=== PATIENT | female | born 1940 | race Caucasian/White ===

== ENCOUNTER 2021-09-16 17:02 | Inpatient (IN) | payer MEDICARE ==
[~2021-09-16] VITALS: Ht 172.7 cm; Wt 72.9 kg
[2021-09-16] MEDS ORDERED: normal saline 1000ml 1,000 ML IV ONE (17:25)
[2021-09-16] MEDS ORDERED: diltiazem 5mg/ml 5ml inj. IV ONE ×3 (17:25→18:50)
[2021-09-16] MEDS ORDERED: aspirin 81mg tab.chew PO ONE (17:25)
[2021-09-16] MEDS ORDERED: diltiazem-D5W 125mg/125ml 125 ML IV PRN (17:35)
--- NOTE | 2021-09-16 17:46 | NUR ---
Pt refused ASA 324mg PO after we had scanned the medications in. Pt did not receive Aspirin. All Aspirin wasted.
[2021-09-16 17:47] LABS: BASOPHILS % (AUTO) 0.6 % (0-1); EOSINOPHILS # (AUTO) 0.2 X10'3 (0-0.9); EOSINOPHILS % (AUTO) 2.5 % (0-6); HEMATOCRIT 43.1 % (35.0-45.0); HEMOGLOBIN 14.6 g/dl (12.0-16.0); LYMPHOCYTES # (AUTO) 1.2 X10'3 (1.1-4.8); LYMPHOCYTES % (AUTO) 14.6 % (21-51); MEAN CORPUSCULAR HEMOGLOBIN 29.1 PG (27.0-31.0); MEAN CORPUSCULAR HGB CONC 33.8 g/dL (33.0-36.5); MEAN CORPUSCULAR VOLUME 85.9 FL (78-98); MEAN PLATELET VOLUME 8.2 FL (7.4-10.4); MONOCYTES # (AUTO) 0.7 X10'3 (0-0.9); MONOCYTES % (AUTO) 8.6 % (2-12); NEUTROPHILS % (AUTO) 73.7 % (42-75); PLATELET COUNT 188 X10'3 (140-440); RED BLOOD COUNT 5.02 X10'6 (4.20-5.60); RED CELL DISTRIBUTION WIDTH 14.1 % (11.5-14.5); WHITE BLOOD COUNT 8.1 X10'3 (4.5-11.0)
[2021-09-16 17:56] LABS: APTT 26 SECONDS (22-32); D-DIMER 3.93 MG/L FEU (0-0.50)
[2021-09-16 18:08] LABS: ALANINE AMINOTRANSFERASE 34 U/L (12-78); ALBUMIN 3.5 G/DL (3.4-5.0); ALBUMIN/GLOBULIN RATIO 1.1 (1.1-1.5); ALKALINE PHOSPHATASE 64 IU/L (46-116); ANION GAP 10 (8-16); ASPARTATE AMINO TRANSFERASE 29 U/L (10-37); BILIRUBIN,TOTAL 1.2 MG/DL (0.1-1.0); BLOOD UREA NITROGEN 15 MG/DL (7-18); C-REACTIVE PROTEIN 1.09 MG/DL (0.0-0.5); CHLORIDE 108 MMOL/L (99-107); CREATININE 0.79 MG/DL (0.40-0.90); GLUCOSE 136 MG/DL (70-104); SODIUM 145 MMOL/L (135-145); TOTAL CARBON DIOXIDE 27.4 MMOL/L (24-32); TOTAL PROTEIN 6.7 G/DL (6.4-8.2); eGFR 70 ML/MIN
[2021-09-16 18:14] LABS: MAGNESIUM 2.1 MG/DL (1.5-2.4); POTASSIUM 2.8 MMOL/L (3.5-5.1)
[2021-09-16] MEDS ORDERED: potassium Cl 20 mEq SR tablet PO ONE (18:45)
[2021-09-16] MEDS ORDERED: potassium CL 10mEq/100ml bag 100 ML IV ONE (18:45)
[2021-09-16] MEDS ORDERED: enoxaparin 100mg/ml syringe SUBCUT ONE ×2 (18:50→19:40)
[2021-09-16] MEDS ORDERED: enoxaparin 40mg/0.4ml syringe SUBCUT ONE (18:55)
[2021-09-16] MEDS ORDERED: enoxaparin 30mg/0.3ml syringe SUBCUT ONE (18:55)
--- NOTE | 2021-09-16 19:30 | NUR ---
Dr. Rendon at bs; pt's hr 156, will increase cardizem gtt to 10 ml/hr per md.
[2021-09-16] MEDS ORDERED: magnesium hydroxide 30ml (MOM) UD suspension PO PRN (19:40)
[2021-09-16] MEDS ORDERED: ondansetron/PF 4mg/2ml inj IV PRN (19:40)
[2021-09-16] MEDS ORDERED: HYDROcodone/acetaminophen 5mg/325mg tablet PO PRN (19:40)
[2021-09-16] MEDS ORDERED: mag hydrox/Alum hydrox/simeth 30ml oral suspension PO PRN (19:40)
[2021-09-16] MEDS ORDERED: morphine 2 MG/ML inj. syringe IV PRN ×2 (19:40)
[2021-09-16] MEDS: docusate sod 100mg capsule PO SCH (20:00)
--- NOTE | 2021-09-16 22:00 | NUR ---
pt observed awake, and resting in bed, sleep aid offered, pt declined, states she normally does not sleep much at home; informed pt that sleep promotes overall health and wellbeing
[2021-09-16 22:23] LABS: CLARITY,URINE SLIGHTLY CLOUDY (Clear); COLOR,URINE YELLOW (Yellow); GLUCOSE, URINE NEGATIVE (Neg); KETONES,URINE NEGATIVE (Neg); LEUKOCYTE ESTERASE ,URINE MODERATE (Neg); NITRITES, URINE NEGATIVE (Neg); OCCULT BLOOD,URINE TRACE-INTACT (Neg); PROTEIN,URINE NEGATIVE (Neg)
[2021-09-16 22:28] LABS: UA COLLECTION TYPE NON-SPECIFIED
[2021-09-16 22:34] LABS: BACTERIA,URINE 2+ /HPF (Neg); MUCUS STRANDS MANY /LPF (Neg); RBC,URINE 0-2 /HPF (0-2); SQUAMOUS EPITHELIAL CELL,UR MANY /LPF (FEW); WBC,URINE 30-50 /HPF (0-4)
--- NOTE | 2021-09-16 23:00 | NUR ---
pt straight cath for clear, y ellow urine, spec sent to lab.
[2021-09-16 23:27] LABS: CLARITY,URINE CLEAR (Clear); COLOR,URINE YELLOW (Yellow); GLUCOSE, URINE NEGATIVE (Neg); KETONES,URINE NEGATIVE (Neg); LEUKOCYTE ESTERASE ,URINE NEGATIVE (Neg); NITRITES, URINE NEGATIVE (Neg); OCCULT BLOOD,URINE NEGATIVE (Neg); PROTEIN,URINE NEGATIVE (Neg)
[2021-09-16 23:32] LABS: UA COLLECTION TYPE NON-SPECIFIED
--- NOTE | 2021-09-17 01:15 | NUR ---
Notified Elina GARCIA of potassium critical lab value
[2021-09-17 01:33] LABS: BASOPHILS % (AUTO) 0.5 % (0-1); EOSINOPHILS # (AUTO) 0.2 X10'3 (0-0.9); EOSINOPHILS % (AUTO) 2.2 % (0-6); HEMATOCRIT 41.8 % (35.0-45.0); HEMOGLOBIN 13.9 g/dl (12.0-16.0); LYMPHOCYTES # (AUTO) 1.6 X10'3 (1.1-4.8); LYMPHOCYTES % (AUTO) 17.4 % (21-51); MEAN CORPUSCULAR HEMOGLOBIN 28.9 PG (27.0-31.0); MEAN CORPUSCULAR HGB CONC 33.4 g/dL (33.0-36.5); MEAN CORPUSCULAR VOLUME 86.7 FL (78-98); MEAN PLATELET VOLUME 8.3 FL (7.4-10.4); MONOCYTES % (AUTO) 11.1 % (2-12); NEUTROPHILS # (AUTO) 6.1 X10'3 (1.8-7.7); NEUTROPHILS % (AUTO) 68.8 % (42-75); PLATELET COUNT 156 X10'3 (140-440); RED BLOOD COUNT 4.82 X10'6 (4.20-5.60); RED CELL DISTRIBUTION WIDTH 14.7 % (11.5-14.5); WHITE BLOOD COUNT 8.9 X10'3 (4.5-11.0)
[2021-09-17 01:43] LABS: ANION GAP 12 (8-16); BLOOD UREA NITROGEN 15 MG/DL (7-18); BUN/CREATININE RATIO 20.3 (6.6-38.0); CALCIUM 8.9 MG/DL (8.5-10.1); CHLORIDE 104 MMOL/L (99-107); CREATININE 0.74 MG/DL (0.40-0.90); GLUCOSE 117 MG/DL (70-104); SODIUM 140 MMOL/L (135-145); TOTAL CARBON DIOXIDE 24.1 MMOL/L (24-32); eGFR 76 ML/MIN
[2021-09-17 01:46] LABS: POTASSIUM 2.9 MMOL/L (3.5-5.1)
--- NOTE | 2021-09-17 02:00 | NUR ---
provided comfort and dim light in attempt to promote rest, or encourage sleep
[2021-09-17] MEDS ORDERED: potassium Cl 10 mEq/100mL bag IV ONE (02:15)
[2021-09-17] MEDS ORDERED: METO75TA PO (03:59)
--- NOTE | 2021-09-17 04:00 | NUR ---
Pt awake, states she does not sleep much at nights
[2021-09-17] MEDS ORDERED: OMEP20TA23 PO (04:01)
[2021-09-17] MEDS ORDERED: IBUP-1984 PO (04:10)
[2021-09-17] MEDS ORDERED: ASPI81TA52 PO (04:11)
[2021-09-17] MEDS ORDERED: magnesium 4gm in 100ml NS 100 ML IV PRN (06:10)
[2021-09-17] MEDS ORDERED: magnesium 2GM in 50ml NS 50 ML IV PRN (06:10)
[2021-09-17] MEDS ORDERED: potassium CL 10mEq/100ml bag 100 ML IV PRN (06:10)
[2021-09-17] MEDS ORDERED: magnesium Cl slow-release 64mg tablet PO PRN (06:10)
[2021-09-17 07:24] LABS: MAGNESIUM 1.8 MG/DL (1.5-2.4)
[2021-09-17 07:27] LABS: POTASSIUM 2.7 MMOL/L (3.5-5.1)
[2021-09-17] MEDS: pantoprazole 40mg Tablet.DR PO SCH (07:52)
[2021-09-17] MEDS: docusate sod 100mg capsule PO SCH ×2 (07:53→19:51)
[2021-09-17] MEDS ORDERED: metoprolol tartrate 25mg tablet PO SCH (08:00)
[2021-09-17] MEDS ORDERED: aspirin 81mg, enteric-coated 1 TAB TABLET.DR PO SCH (08:00)
[2021-09-17] MEDS: furosemide 20 MG/2 ML vial IV SCH ×2 (08:00→19:58)
[2021-09-17] MEDS: potassium Cl 20 mEq SR tablet PO PRN ×3 (08:13→19:53)
--- NOTE | 2021-09-17 08:17 | NUR ---
Spoke with Dr. Bruner about Afib with RVR. Pt's HR 125-145. Lopressor was given at 0752, aware, and will call or notify us with futher orders. Also notified about K+ 2.7, following protocol and gave pt 40mEq Kdur PO.
--- NOTE | 2021-09-17 12:45 | NUR ---
Spoke with Dr. Bruner regarding pt's increasing HR.
--- NOTE | 2021-09-17 13:19 | NUR ---
Report given to Mary Ann RN in PCU.
[2021-09-17] MEDS ORDERED: ASPI-611 PO (13:45)
[2021-09-17] MEDS ORDERED: OMEP20TA43 PO (13:45)
[2021-09-17] MEDS ORDERED: IBUP-24 PO (13:45)
[2021-09-17] MEDS: diltiazem-D5W 125mg/125ml 125 ML IV SCH (13:47)
[2021-09-17 14:25] VITALS: BP 124/99
[2021-09-17 15:00] VITALS: BP 129/92
[2021-09-17] MEDS ORDERED: traMADol 50MG tablet PO PRN (15:00)
[2021-09-17 17:00] VITALS: BP 120/73
[2021-09-17 18:00] VITALS: BP 129/92
[2021-09-17] MEDS: metoprolol tartrate 50mg tablet PO SCH (19:52)
[2021-09-17] MEDS: K and/or MAG REPLACEMENT MC SCH ×2 (20:00→21:00)
[2021-09-17 22:00] VITALS: BP 129/92
[2021-09-18] VITALS (7 sets, daily range): BP systolic 69–155; BP diastolic 55–106
--- NOTE | 2021-09-18 04:23 | NUR ---
Patient still on cardizem drip. At about [address], bp noted to be 69/55,(58). Dr Pagan notified. Ordered to stop the cadizem drip. Cadizem drip stopped at this time. Patient appears stable at this time. will continue to monitor.
[2021-09-18 06:19] LABS: BASOPHILS % (AUTO) 0.3 % (0-1); EOSINOPHILS # (AUTO) 0.2 X10'3 (0-0.9); EOSINOPHILS % (AUTO) 1.6 % (0-6); HEMATOCRIT 40.6 % (35.0-45.0); HEMOGLOBIN 13.9 g/dl (12.0-16.0); LYMPHOCYTES # (AUTO) 1.2 X10'3 (1.1-4.8); LYMPHOCYTES % (AUTO) 12.7 % (21-51); MEAN CORPUSCULAR HEMOGLOBIN 29.3 PG (27.0-31.0); MEAN CORPUSCULAR HGB CONC 34.1 g/dL (33.0-36.5); MEAN CORPUSCULAR VOLUME 85.9 FL (78-98); MEAN PLATELET VOLUME 8.7 FL (7.4-10.4); MONOCYTES % (AUTO) 10.5 % (2-12); NEUTROPHILS # (AUTO) 6.9 X10'3 (1.8-7.7); NEUTROPHILS % (AUTO) 74.9 % (42-75); PLATELET COUNT 201 X10'3 (140-440); RED BLOOD COUNT 4.73 X10'6 (4.20-5.60); RED CELL DISTRIBUTION WIDTH 14.3 % (11.5-14.5); WHITE BLOOD COUNT 9.2 X10'3 (4.5-11.0)
[2021-09-18 06:25] LABS: ANION GAP 4 (8-16); BLOOD UREA NITROGEN 19 MG/DL (7-18); CALCIUM 9.3 MG/DL (8.5-10.1); CHLORIDE 106 MMOL/L (99-107); CREATININE 0.95 MG/DL (0.40-0.90); GLUCOSE 133 MG/DL (70-104); POTASSIUM 4.5 MMOL/L (3.5-5.1); SODIUM 141 MMOL/L (135-145); TOTAL CARBON DIOXIDE 30.9 MMOL/L (24-32); eGFR 57 ML/MIN
[2021-09-18] MEDS: K and/or MAG REPLACEMENT MC SCH ×2 (08:00→20:00)
[2021-09-18] MEDS: furosemide 20 MG/2 ML vial IV SCH ×2 (08:00→20:00)
[2021-09-18] MEDS ORDERED: non-formulary drug (Omeprazole 1 TAB) PO SCH (08:00)
[2021-09-18] MEDS: docusate sod 100mg capsule PO SCH ×2 (08:00→20:00)
[2021-09-18] MEDS ORDERED: digoxin 250mcg/ml 2ml ampule IV ONE (08:40)
[2021-09-18] MEDS: pantoprazole 40mg Tablet.DR PO SCH (09:30)
[2021-09-18] MEDS ORDERED: iohexol 350MG/ML 100ml bottle IV ONE (10:33)
[2021-09-18] MEDS ORDERED: non-formulary drug (Aspirin (Aspir 81) 1 TAB) PO SCH (12:00)
[2021-09-18] MEDS ORDERED: amiodarone 150mg/dext, iso-os 100 ML IV ONE (12:30)
[2021-09-18] MEDS: metoprolol tartrate 50mg tablet PO SCH ×2 (12:48→20:00)
[2021-09-18] MEDS: aspirin 81mg, enteric-coated 1 TAB TABLET.DR PO SCH (12:48)
[2021-09-18] MEDS: amiodarone/D5 360MG/200ML BAG 200 ML IV SCH ×3 (13:29→21:17)
[2021-09-18] MEDS: diltiazem-D5W 125mg/125ml 125 ML IV SCH (14:00)
[2021-09-18] MEDS: digoxin 250mcg/ml 2ml ampule IV SCH (17:10)
[2021-09-18] MEDS ORDERED: warfarin 5mg tablet PO ONE (21:00)
[2021-09-19] MEDS: digoxin 250mcg/ml 2ml ampule IV SCH (00:35)
--- NOTE | 2021-09-19 01:55 | NUR ---
This 81-year-old female, admitted 09/17/2021, day 2 of hospitalization, full code, no isolation, no restraints. Multiple allergies. Pt presents 09/17/2021 to her regular clinic to be released back to work. She was found to be tachycardic, so she was sent for further evaluation to the Emergency Room. The patient states that she was sick at home with nausea, vomiting and diarrhea. She was getting released back to work. She has had history of irregular heartbeat. She denies any palpitations, chest pain or shortness of breath. Currently, pt is afebrile, AAO times 4 moves all extremities, follows all commands. Steady getting up to BSC. Bedside monitor, Amiodarone gtt .5mg (16.65 ml/hr) HR 100-130 AF, 136/69, good pulses, trace edema. ECHO 09/17/2021 EF 60-65%RR 18, PO 98% RA, clear/ diminished, equal , symmetrical, non labored. 09/17/2021 CTA shows small pleural effusions, no PE. Hypoactive bowel sounds, soft, non tender, non distended, heart healthy diet well tolerated. Voids freely via BSC, CYU. Pt on Lasix. Skin intact. Pt remains safe. Addendum: 09/19/21 at 0431 by Baldomero Camarillo RN 1999 pt refused her Coumadin stated she had an allergic reaction to coumarin years ago. Stated she wanted to talk with her doctor first before taking the med.
[2021-09-19 03:00] VITALS: BP 146/91
[2021-09-19 06:59] LABS: BASOPHILS # (AUTO) 0.1 X10'3 (0-0.2); BASOPHILS % (AUTO) 0.5 % (0-1); EOSINOPHILS # (AUTO) 0.2 X10'3 (0-0.9); EOSINOPHILS % (AUTO) 1.4 % (0-6); HEMATOCRIT 44.8 % (35.0-45.0); HEMOGLOBIN 15.3 g/dl (12.0-16.0); LYMPHOCYTES # (AUTO) 1.3 X10'3 (1.1-4.8); LYMPHOCYTES % (AUTO) 10.8 % (21-51); MEAN CORPUSCULAR HEMOGLOBIN 29.3 PG (27.0-31.0); MEAN CORPUSCULAR HGB CONC 34.3 g/dL (33.0-36.5); MEAN CORPUSCULAR VOLUME 85.6 FL (78-98); MEAN PLATELET VOLUME 8.7 FL (7.4-10.4); MONOCYTES # (AUTO) 1.1 X10'3 (0-0.9); MONOCYTES % (AUTO) 9.2 % (2-12); NEUTROPHILS # (AUTO) 9.3 X10'3 (1.8-7.7); NEUTROPHILS % (AUTO) 78.1 % (42-75); PLATELET COUNT 205 X10'3 (140-440); RED BLOOD COUNT 5.23 X10'6 (4.20-5.60); RED CELL DISTRIBUTION WIDTH 14.1 % (11.5-14.5); WHITE BLOOD COUNT 11.8 X10'3 (4.5-11.0)
[2021-09-19 07:26] LABS: ALBUMIN 3.2 G/DL (3.4-5.0); ANION GAP 8 (8-16); BLOOD UREA NITROGEN 19 MG/DL (7-18); BUN/CREATININE RATIO 20.7 (6.6-38.0); CALCIUM 9.1 MG/DL (8.5-10.1); CHLORIDE 103 MMOL/L (99-107); CREATININE 0.92 MG/DL (0.40-0.90); GLUCOSE 133 MG/DL (70-104); POTASSIUM 3.8 MMOL/L (3.5-5.1); SODIUM 143 MMOL/L (135-145); eGFR 59 ML/MIN
[2021-09-19] MEDS: pantoprazole 40mg Tablet.DR PO SCH (07:26)
[2021-09-19] MEDS: metoprolol tartrate 50mg tablet PO SCH (07:27)
[2021-09-19] MEDS: furosemide 20 MG/2 ML vial IV SCH ×2 (07:28→19:31)
[2021-09-19] MEDS: amiodarone/D5 360MG/200ML BAG 200 ML IV SCH (07:36)
[2021-09-19] MEDS: K and/or MAG REPLACEMENT MC SCH ×2 (08:00→20:00)
[2021-09-19] MEDS: docusate sod 100mg capsule PO SCH ×2 (08:00→19:31)
[2021-09-19] MEDS ORDERED: metoprolol tartrate 50mg tablet PO ONE (09:20)
[2021-09-19 10:59] LABS: ALANINE AMINOTRANSFERASE 28 U/L (12-78); ALKALINE PHOSPHATASE 60 IU/L (46-116); ASPARTATE AMINO TRANSFERASE 22 U/L (10-37); BILIRUBIN,DIRECT 0.2 MG/DL (0-0.3); BILIRUBIN,TOTAL 0.9 MG/DL (0.1-1.0); TOTAL PROTEIN 6.5 G/DL (6.4-8.2)
[2021-09-19] MEDS ORDERED: metoprolol tartrate 25mg tablet PO ONE (12:00)
[2021-09-19] MEDS: aspirin 81mg, enteric-coated 1 TAB TABLET.DR PO SCH (12:57)
[2021-09-19 15:00] VITALS: BP 102/55
[2021-09-19] MEDS ORDERED: ondansetron 4mg rapidly disintigrating tab PO PRN (16:25)
[2021-09-19] MEDS: amiodarone 200mg tablet PO SCH (17:52)
[2021-09-19] MEDS: potassium Cl 20 mEq SR tablet PO PRN ×2 (17:52→21:04)
[2021-09-19 18:00] VITALS: BP 105/65
[2021-09-19] MEDS: diltiazem CD 120mg capsule (once-daily) PO SCH (18:20)
[2021-09-19] MEDS: metoprolol tartrate 25mg tablet PO SCH (19:31)
[2021-09-19 19:44] LABS: POTASSIUM 3.7 MMOL/L (3.5-5.1)
[2021-09-19 19:56] LABS: MAGNESIUM 1.7 MG/DL (1.5-2.4)
[2021-09-19] MEDS ORDERED: warfarin 2.5mg tablet PO ONE (21:00)
--- NOTE | 2021-09-19 21:24 | NUR ---
2100 Per Cardiology notes, Keep K+ 4.0 and Mg+ at 2. Repeat labs, Mg+ 1.7 gave 2 grams IV and K+3.7 gave 20 meq PO. BP was low, 106/[address] Panda Cruz. Hold Cardizem 240 mg Po for 2 hours, then re-evaluate.
[2021-09-19 22:00] VITALS: BP 105/53
[2021-09-20] VITALS (19 sets, daily range): BP systolic 72–120; BP diastolic 49–85
--- NOTE | 2021-09-20 00:52 | NUR ---
This 81-year-old female, admitted 09/17/2021, day 3 of hospitalization, full code, no isolation, no restraints. Multiple allergies. Pt presents 09/17/2021 to her regular clinic to be released back to work. She was found to be tachycardic, so she was sent for further evaluation to the Emergency Room. The patient states that she was sick at home with nausea, vomiting and diarrhea. She was getting released back to work. She has had history of irregular heartbeat. She denies any palpitations, chest pain or shortness of breath. Currently, pt is afebrile, AAO times 4 moves all extremities, follows all commands. Steady getting up to BSC. Bedside monitor, IV Amiodarone dc'd, to PO Cardizem. Could not give PO Cardizem due to BP 100/60 and 95/60. HR 100-130 AF, good pulses, trace edema. ECHO 09/17/2021 EF 60-65%. RR 18, PO 98% RA, clear/ diminished, equal , symmetrical, non labored. 09/17/2021 CTA shows small pleural effusions, no PE. Hypoactive bowel sounds, soft, non tender, non distended, heart healthy diet well tolerated. Voids freely via BSC, CYU. Lasix held due to Low BP. Skin intact. Pt remains safe.
[2021-09-20 06:46] LABS: BASOPHILS % (AUTO) 0.2 % (0-1); EOSINOPHILS % (AUTO) 0.2 % (0-6); HEMATOCRIT 47.2 % (35.0-45.0); HEMOGLOBIN 15.8 g/dl (12.0-16.0); LYMPHOCYTES # (AUTO) 0.8 X10'3 (1.1-4.8); LYMPHOCYTES % (AUTO) 5.2 % (21-51); MEAN CORPUSCULAR HEMOGLOBIN 28.6 PG (27.0-31.0); MEAN CORPUSCULAR HGB CONC 33.5 g/dL (33.0-36.5); MEAN CORPUSCULAR VOLUME 85.2 FL (78-98); MEAN PLATELET VOLUME 8.7 FL (7.4-10.4); MONOCYTES # (AUTO) 1.3 X10'3 (0-0.9); MONOCYTES % (AUTO) 8.2 % (2-12); NEUTROPHILS # (AUTO) 13.8 X10'3 (1.8-7.7); NEUTROPHILS % (AUTO) 86.2 % (42-75); PLATELET COUNT 254 X10'3 (140-440); RED BLOOD COUNT 5.54 X10'6 (4.20-5.60)
[2021-09-20 06:58] LABS: ALBUMIN 3.1 G/DL (3.4-5.0); ANION GAP 10 (8-16); BLOOD UREA NITROGEN 23 MG/DL (7-18); BUN/CREATININE RATIO 26.4 (6.6-38.0); CALCIUM 9.3 MG/DL (8.5-10.1); CHLORIDE 101 MMOL/L (99-107); CREATININE 0.87 MG/DL (0.40-0.90); GLUCOSE 159 MG/DL (70-104); MAGNESIUM 2.4 MG/DL (1.5-2.4); POTASSIUM 4.6 MMOL/L (3.5-5.1); SODIUM 140 MMOL/L (135-145); TOTAL CARBON DIOXIDE 29.2 MMOL/L (24-32); eGFR 63 ML/MIN
--- NOTE | 2021-09-20 07:08 | NUR ---
Patient in room PCU 3024. I have received report from Enzo GARCIA and had the opportunity to ask questions and assume patient care.
[2021-09-20] MEDS: metoprolol tartrate 25mg tablet PO SCH (08:00)
[2021-09-20] MEDS: K and/or MAG REPLACEMENT MC SCH ×2 (08:00→20:00)
[2021-09-20] MEDS: amiodarone 200mg tablet PO SCH (08:25)
[2021-09-20] MEDS: pantoprazole 40mg Tablet.DR PO SCH (08:25)
[2021-09-20] MEDS: diltiazem CD 120mg capsule (once-daily) PO SCH (08:25)
[2021-09-20] MEDS: docusate sod 100mg capsule PO SCH ×2 (08:25→20:00)
[2021-09-20] MEDS: enoxaparin 40mg/0.4ml syringe SQ SCH (08:32)
--- NOTE | 2021-09-20 09:50 | NUR ---
Initial: Pt admitted w/ Afib w/ RVR per EMR. Currently on Heart Healthy diet w/ avg intake 70% x 7 meals though w/ a slight decline in PO recently. Overall meeting est nutrient needs at this time though recommend liberalizing to Regular diet given age and no diet-related cardiac hx in EMR. LBM / receiving routine colace. Will continue to monitor. Recs: 1. Liberalize to Regular diet 2. Bowel care per rx 3. Weekly wts Addendum: 09/20/21 at [address] Amended: Links added.
[2021-09-20] MEDS: furosemide 20 MG/2 ML vial IV SCH ×2 (10:45→20:00)
[2021-09-20] MEDS ORDERED: amiodarone 150mg/dext, iso-os 100 ML IV ONE (11:05)
[2021-09-20] MEDS ORDERED: amiodarone 200mg tablet PO ONE ×2 (11:15→12:35)
[2021-09-20] MEDS ORDERED: amiodarone 100mg tablet PO ONE (11:30)
[2021-09-20] MEDS: aspirin 81mg, enteric-coated 1 TAB TABLET.DR PO SCH (12:10)
[2021-09-20] MEDS: metoprolol tartrate 1mg/ml inj IV SCH ×2 (12:10→12:44)
--- NOTE | 2021-09-20 12:13 | NUR ---
106/71BP hr 136-143, first dose of Metropolol is being given.
--- NOTE | 2021-09-20 12:31 | NUR ---
patients HR 115-136 bp 106/72 second dose to be given.
[2021-09-20] MEDS ORDERED: metoprolol tartrate 25mg tablet PO ONE (13:30)
--- NOTE | 2021-09-20 13:49 | NUR ---
PAGED DR. AMAYA AND NOTIFIED HIM PATIENTS BP WAS 95/52 AND HR 75-80 AND DID HE WANT THE NEXT DOES OF METOPROLOL GIVEN. HE STATED TO WAIT 30-45MINS UNTIL SBP IS ABOVE 100.
[2021-09-20] MEDS ORDERED: ibuprofen 200mg tablet PO PRN (14:45)
[2021-09-20] MEDS: ibuprofen 200mg tablet PO SCH (17:43)
[2021-09-20] MEDS ORDERED: amiodarone 200mg tablet PO SCH (20:00)
[2021-09-20] MEDS: metoprolol tartrate 50mg tablet PO SCH (20:00)
--- NOTE | 2021-09-20 20:30 | NUR ---
pt noted to be hypotensive. systolic in 70-80s. HR 70-90 a.fib. MD Morris called and made aware. Order to admin 500ml NS bolus. Bolus administered as ordered. 2130 BP recovering to low 90s systolic 2230 MD Morris notified blood pressure is decreasing. Order to admin 250mL bolus of NS. 250mL bolus of NS admin as ordered. Maintain map >60. 0100 BP maintaining high 90s 0130 BP maintaining in low 100s will continue to monitor
[2021-09-20] MEDS ORDERED: normal saline 500ml IV soln 500 ML IV ONE (20:40)
[2021-09-20] MEDS ORDERED: warfarin 2.5mg tablet PO ONE (21:00)
[2021-09-21] VITALS (24 sets, daily range): BP systolic 86–144; BP diastolic 49–92
--- NOTE | 2021-09-21 06:45 | NUR ---
Patient in room PCU 3024. I have received report from Marianela GARCIA and had the opportunity to ask questions and assume patient care. Patient is resting in bed in no acute distress.
[2021-09-21 06:53] LABS: BASOPHILS # (AUTO) 0.1 X10'3 (0-0.2); BASOPHILS % (AUTO) 0.5 % (0-1); EOSINOPHILS # (AUTO) 0.1 X10'3 (0-0.9); EOSINOPHILS % (AUTO) 1.1 % (0-6); HEMATOCRIT 45.2 % (35.0-45.0); HEMOGLOBIN 15.2 g/dl (12.0-16.0); LYMPHOCYTES % (AUTO) 8.6 % (21-51); MEAN CORPUSCULAR HGB CONC 33.7 g/dL (33.0-36.5); MEAN CORPUSCULAR VOLUME 86.1 FL (78-98); MEAN PLATELET VOLUME 8.3 FL (7.4-10.4); MONOCYTES # (AUTO) 1.3 X10'3 (0-0.9); MONOCYTES % (AUTO) 10.6 % (2-12); NEUTROPHILS # (AUTO) 9.4 X10'3 (1.8-7.7); NEUTROPHILS % (AUTO) 79.2 % (42-75); PLATELET COUNT 201 X10'3 (140-440); RED BLOOD COUNT 5.25 X10'6 (4.20-5.60); RED CELL DISTRIBUTION WIDTH 14.3 % (11.5-14.5); WHITE BLOOD COUNT 11.9 X10'3 (4.5-11.0)
[2021-09-21 07:08] LABS: ALBUMIN 2.8 G/DL (3.4-5.0); ANION GAP 8 (8-16); BLOOD UREA NITROGEN 35 MG/DL (7-18); BUN/CREATININE RATIO 28.5 (6.6-38.0); CALCIUM 9.1 MG/DL (8.5-10.1); CHLORIDE 103 MMOL/L (99-107); CREATININE 1.23 MG/DL (0.40-0.90); GLUCOSE 117 MG/DL (70-104); MAGNESIUM 2.5 MG/DL (1.5-2.4); POTASSIUM 4.3 MMOL/L (3.5-5.1); SODIUM 143 MMOL/L (135-145); TOTAL CARBON DIOXIDE 31.6 MMOL/L (24-32); eGFR 42 ML/MIN
[2021-09-21] MEDS: pantoprazole 40mg Tablet.DR PO SCH (07:30)
[2021-09-21] MEDS: metoprolol tartrate 50mg tablet PO SCH ×2 (08:00→20:00)
[2021-09-21] MEDS: enoxaparin 40mg/0.4ml syringe SQ SCH ×2 (08:00→20:42)
[2021-09-21] MEDS: K and/or MAG REPLACEMENT MC SCH ×2 (08:00→20:00)
[2021-09-21] MEDS: amiodarone 200mg tablet PO SCH ×3 (08:00→20:40)
[2021-09-21] MEDS: furosemide 20 MG/2 ML vial IV SCH ×2 (08:00→20:00)
[2021-09-21] MEDS: docusate sod 100mg capsule PO SCH ×2 (08:00→20:00)
[2021-09-21] MEDS ORDERED: morphine 10mg/ml inj. IV ONE (08:00)
[2021-09-21] MEDS ORDERED: midazolam 1 mg/ML 2ml injection IV ONE (08:00)
[2021-09-21] MEDS ORDERED: fentaNYL/PF 50MCG/1 ML 2ML syringe IV ONE (08:10)
[2021-09-21] MEDS: ibuprofen 200mg tablet PO SCH ×3 (08:30→17:34)
--- NOTE | 2021-09-21 09:41 | NUR ---
I was asked not to give patient any meds that would lower BP before TIFFANIE and possible cardioversion. PO meds held after TIFFANIE due to patient sedated and airway was numbed for procedure. I will reevaluate PO meds after patient is awake and able to follow commands. I will do bed side swallow before admin to make sure PO medical record coder is safe.
[2021-09-21] MEDS: aspirin 81mg, enteric-coated 1 TAB TABLET.DR PO SCH (12:46)
--- NOTE | 2021-09-21 12:56 | NUR ---
Patient awake and oriented . She passed bedside swallow and was able to take afternoon PO meds.
--- NOTE | 2021-09-21 14:12 | NUR ---
A.M. amio given late but just before half time due to trend in patient HR 120s-140s.
--- NOTE | 2021-09-21 18:08 | NUR ---
Problems reprioritized. Patient report given, questions answered & plan of care reviewed with Ju GARCIA. Patient resting in bed in no acute distress.
[2021-09-21] MEDS: enoxaparin 30mg/0.3ml syringe SQ SCH (20:42)
[2021-09-21] MEDS ORDERED: warfarin 4mg tablet PO ONE (21:00)
[2021-09-22] VITALS (7 sets, daily range): BP systolic 99–120; BP diastolic 58–77
[2021-09-22 07:10] LABS: MAGNESIUM 2.4 MG/DL (1.5-2.4)
[2021-09-22] MEDS: docusate sod 100mg capsule PO SCH ×2 (07:28→20:00)
[2021-09-22] MEDS: amiodarone 200mg tablet PO SCH ×2 (07:28→21:18)
[2021-09-22] MEDS: pantoprazole 40mg Tablet.DR PO SCH (07:28)
[2021-09-22] MEDS: enoxaparin 30mg/0.3ml syringe SQ SCH ×2 (07:29→21:11)
[2021-09-22] MEDS: furosemide 20 MG/2 ML vial IV SCH ×2 (07:30→21:10)
[2021-09-22] MEDS: enoxaparin 40mg/0.4ml syringe SQ SCH ×2 (07:30→21:13)
[2021-09-22] MEDS: ibuprofen 200mg tablet PO SCH ×3 (07:31→17:44)
[2021-09-22] MEDS: metoprolol tartrate 50mg tablet PO SCH ×2 (07:31→21:15)
[2021-09-22 07:52] LABS: BASOPHILS % (AUTO) 0.5 % (0-1); EOSINOPHILS # (AUTO) 0.2 X10'3 (0-0.9); HEMATOCRIT 42.5 % (35.0-45.0); HEMOGLOBIN 14.4 g/dl (12.0-16.0); LYMPHOCYTES % (AUTO) 13.3 % (21-51); MEAN CORPUSCULAR HEMOGLOBIN 28.7 PG (27.0-31.0); MEAN CORPUSCULAR HGB CONC 33.8 g/dL (33.0-36.5); MEAN PLATELET VOLUME 9.1 FL (7.4-10.4); MONOCYTES # (AUTO) 0.7 X10'3 (0-0.9); MONOCYTES % (AUTO) 8.7 % (2-12); NEUTROPHILS # (AUTO) 5.8 X10'3 (1.8-7.7); NEUTROPHILS % (AUTO) 75.5 % (42-75); PLATELET COUNT 218 X10'3 (140-440); RED CELL DISTRIBUTION WIDTH 14.4 % (11.5-14.5); WHITE BLOOD COUNT 7.7 X10'3 (4.5-11.0)
[2021-09-22] MEDS: K and/or MAG REPLACEMENT MC SCH ×2 (08:00→20:00)
[2021-09-22 08:10] LABS: ALBUMIN 2.6 G/DL (3.4-5.0); ANION GAP 6 (8-16); BLOOD UREA NITROGEN 32 MG/DL (7-18); BUN/CREATININE RATIO 35.6 (6.6-38.0); CALCIUM 8.7 MG/DL (8.5-10.1); CHLORIDE 106 MMOL/L (99-107); GLUCOSE 105 MG/DL (70-104); SODIUM 142 MMOL/L (135-145); TOTAL CARBON DIOXIDE 30.5 MMOL/L (24-32); eGFR 60 ML/MIN
[2021-09-22] MEDS ORDERED: digoxin 250mcg/ml 2ml ampule IV ONE ×3 (09:50→12:20)
[2021-09-22] MEDS ORDERED: metoprolol tartrate 25mg tablet PO ONE ×2 (09:50→13:00)
--- NOTE | 2021-09-22 09:55 | NUR ---
Reassessment: Pt's PO intake has declined significantly, now avg 30% x 7 meals not meeting needs. D/w pt who states her appetite is fair but there are some foods she does not like; obtained food preferences. Pt also states that her friend has been bringing her Boost protein drinks, observed bottle at bedside table. Pt declined any additional food preferences. Pt underwent cardioversion 09/21. LBM 09/19 receiving routine colace. Will continue to monitor. Recs: 1. Liberalize to Regular diet 2. Boost protein drinks provided by friend; pt declined further ONS 3. Bowel care per rx 4. Weekly wts Addendum: 09/22/21 at [address] Amended: Links added.
[2021-09-22] MEDS: aspirin 81mg, enteric-coated 1 TAB TABLET.DR PO SCH (12:24)
--- NOTE | 2021-09-22 17:47 | NUR ---
[place] documentation: I have reviewed and agree with all interventions, assessments performed and documented by Ramses GARCIA. [place] Medication Administration: For this medication-pass time frame, all medication were reviewed, dispensed, administered and documented per hospital policy by Jay GARCIA
--- NOTE | 2021-09-22 18:14 | NUR ---
Problems reprioritized. Patient report given, questions answered & plan of care reviewed with Gaetano GARCIA.
--- NOTE | 2021-09-22 18:24 | NUR ---
Problems reprioritized. Patient report given, questions answered & plan of care reviewed with Ju GARCIA. Patient resting in bed in no acute distress.
[2021-09-22] MEDS ORDERED: warfarin 7.5mg tablet PO ONE (21:00)
[2021-09-23 02:00] VITALS: BP 112/66
[2021-09-23 06:00] VITALS: BP 111/73
--- NOTE | 2021-09-23 07:53 | NUR ---
Patient c/o nausea. Refusing zofran at this time.
[2021-09-23] MEDS: K and/or MAG REPLACEMENT MC SCH ×2 (08:00→19:13)
[2021-09-23] MEDS: docusate sod 100mg capsule PO SCH ×2 (08:00→20:00)
[2021-09-23] MEDS: enoxaparin 30mg/0.3ml syringe SQ SCH ×2 (08:40→20:48)
[2021-09-23] MEDS: enoxaparin 40mg/0.4ml syringe SQ SCH ×2 (08:40→20:49)
--- NOTE | 2021-09-23 08:51 | NUR ---
patient agreeable to daniloan, declined routine po meds until later
[2021-09-23] MEDS: furosemide 20 MG/2 ML vial IV SCH ×2 (08:52→20:00)
[2021-09-23] MEDS: amiodarone 200mg tablet PO SCH ×2 (09:30→22:59)
[2021-09-23] MEDS: pantoprazole 40mg Tablet.DR PO SCH (09:30)
[2021-09-23] MEDS: ibuprofen 200mg tablet PO SCH ×2 (09:30→12:59)
[2021-09-23] MEDS: metoprolol tartrate 50mg tablet PO SCH ×2 (09:32→20:57)
[2021-09-23 11:00] VITALS: BP 104/66
[2021-09-23] MEDS: aspirin 81mg, enteric-coated 1 TAB TABLET.DR PO SCH (12:59)
[2021-09-23 15:00] VITALS: BP 93/59
[2021-09-23] MEDS ORDERED: metoprolol tartrate 25mg tablet PO ONE (15:45)
[2021-09-23 18:00] VITALS: BP 103/74
--- NOTE | 2021-09-23 18:22 | NUR ---
Report to Daysi GARCIA
--- NOTE | 2021-09-23 18:24 | NUR ---
Problems reprioritized. Patient report given, questions answered & plan of care reviewed with Daysi GARCIA.
[2021-09-23] MEDS ORDERED: warfarin 5mg tablet PO ONE (21:00)
[2021-09-23 22:00] VITALS: BP 101/77
[2021-09-24 02:30] VITALS: BP 108/76
[2021-09-24 06:00] VITALS: BP 102/75
[2021-09-24] MEDS: docusate sod 100mg capsule PO SCH ×2 (08:00→20:00)
[2021-09-24] MEDS: furosemide 20 MG/2 ML vial IV SCH ×2 (08:00→20:00)
[2021-09-24] MEDS: K and/or MAG REPLACEMENT MC SCH ×2 (08:00→19:46)
[2021-09-24 08:38] LABS: BASOPHILS # (AUTO) 0.1 X10'3 (0-0.2); BASOPHILS % (AUTO) 0.8 % (0-1); EOSINOPHILS # (AUTO) 0.1 X10'3 (0-0.9); EOSINOPHILS % (AUTO) 1.6 % (0-6); HEMATOCRIT 47.5 % (35.0-45.0); HEMOGLOBIN 15.6 g/dl (12.0-16.0); LYMPHOCYTES # (AUTO) 1.2 X10'3 (1.1-4.8); LYMPHOCYTES % (AUTO) 15.2 % (21-51); MEAN CORPUSCULAR HEMOGLOBIN 28.1 PG (27.0-31.0); MEAN CORPUSCULAR HGB CONC 32.8 g/dL (33.0-36.5); MEAN CORPUSCULAR VOLUME 85.5 FL (78-98); MEAN PLATELET VOLUME 9.1 FL (7.4-10.4); MONOCYTES # (AUTO) 0.8 X10'3 (0-0.9); NEUTROPHILS # (AUTO) 5.5 X10'3 (1.8-7.7); NEUTROPHILS % (AUTO) 72.4 % (42-75); PLATELET COUNT 304 X10'3 (140-440); RED BLOOD COUNT 5.56 X10'6 (4.20-5.60); RED CELL DISTRIBUTION WIDTH 14.2 % (11.5-14.5); WHITE BLOOD COUNT 7.7 X10'3 (4.5-11.0)
[2021-09-24] MEDS: amiodarone 200mg tablet PO SCH ×2 (09:12→20:56)
[2021-09-24] MEDS: pantoprazole 40mg Tablet.DR PO SCH (09:12)
--- NOTE | 2021-09-24 10:12 | NUR ---
HR 97-[address] Haq regarding pt refusing am Lasix, and am Metoprolol dose. Awaiting callback. Addendum: 09/24/21 at 1017 by Lamberto Camarillo RN if am metoprolol okay to give.
[2021-09-24] MEDS: metoprolol tartrate 50mg tablet PO SCH ×3 (10:51→20:06)
[2021-09-24 11:00] VITALS: BP 111/66
--- NOTE | 2021-09-24 11:00 | NUR ---
MD Haq on phone. Per , okay give metoprolol, see new orders.
[2021-09-24] MEDS ORDERED: digoxin 250mcg/ml 2ml ampule IV ONE ×2 (11:15→17:20)
[2021-09-24] MEDS: aspirin 81mg, enteric-coated 1 TAB TABLET.DR PO SCH (12:00)
[2021-09-24 15:00] VITALS: BP 109/69
[2021-09-24 18:00] VITALS: BP 124/78
[2021-09-24] MEDS ORDERED: metoprolol tartrate 50mg tablet PO ONE ×2 (20:10)
--- NOTE | 2021-09-24 20:10 | NUR ---
MD Haq up at bedside. per split 50mg metoprolol dose into two doses. give 25mg PM dose, then reassess 1hr after. give 2nd 25mg dose if HR remains elevated and BP >100. new orders placed to match verbal orders. wc Addendum: 09/24/21 at 2227 by Daysi Camarillo RN * BP>90 Addendum: 09/24/21 at 2232 by Daysi Camarillo RN HR 70s-90. BP 91/64. metoprolol not given at this time. pt asymptomatic, denies lightheadedness/dizziness. Pt requesting motrin for headache. MD Tapia called, per verbal order prn motrin placed. pt remains on mobile monitor, will continue to monitor HR & BP.
[2021-09-24 22:06] VITALS: BP 91/63
[2021-09-24] MEDS ORDERED: ibuprofen 200mg tablet PO PRN ×2 (22:25→22:55)
[2021-09-25] MEDS ORDERED: metoprolol tartrate 25mg tablet PO ONE (00:35)
[2021-09-25] MEDS ORDERED: normal saline 500ml IV soln 500 ML IV ONE (00:35)
--- NOTE | 2021-09-25 00:45 | NUR ---
RN noted pt HR 90s-110. MD Tapia notified that pt only received one of split doses d/t HR 70s-90, with BP 91/63. RN questioning if okay to give 25mg metoprolol for pt to receive full 50mg dose per orders to keep SBP over 90. Dr. Tapia ordered to give 25mg metoprolol and 500mg NS bolus x1. RN told MD of pt hx CHF with elevated pBNP and refusal to take Lasix, no change in orders. Went in to discuss plan with pt. HR back to 70s-80s. BP 95/74. Pt refused fluid bolus. Will continue to monitor if patient BP stable enough for 2nd split dose of metoprolol.
[2021-09-25 02:30] VITALS: BP 93/52
--- NOTE | 2021-09-25 03:12 | NUR ---
@0130 Pt HR continues to maintain 70s-80s. BP 93/60. Continue to monitor HR and BP. split dose not given. pt to receive leticia 8 am 50mg dose.
[2021-09-25 06:26] LABS: ALBUMIN 2.9 G/DL (3.4-5.0); ANION GAP 8 (8-16); BLOOD UREA NITROGEN 32 MG/DL (7-18); CALCIUM 9.3 MG/DL (8.5-10.1); CHLORIDE 104 MMOL/L (99-107); CREATININE 0.97 MG/DL (0.40-0.90); GLUCOSE 116 MG/DL (70-104); POTASSIUM 3.9 MMOL/L (3.5-5.1); SODIUM 144 MMOL/L (135-145); TOTAL CARBON DIOXIDE 32.4 MMOL/L (24-32); eGFR 55 ML/MIN
[2021-09-25 06:54] LABS: BASOPHILS # (AUTO) 0.1 X10'3 (0-0.2); BASOPHILS % (AUTO) 0.5 % (0-1); EOSINOPHILS # (AUTO) 0.2 X10'3 (0-0.9); EOSINOPHILS % (AUTO) 1.9 % (0-6); HEMATOCRIT 44.8 % (35.0-45.0); HEMOGLOBIN 15.4 g/dl (12.0-16.0); LYMPHOCYTES # (AUTO) 1.5 X10'3 (1.1-4.8); LYMPHOCYTES % (AUTO) 14.1 % (21-51); MEAN CORPUSCULAR HEMOGLOBIN 29.3 PG (27.0-31.0); MEAN CORPUSCULAR HGB CONC 34.5 g/dL (33.0-36.5); MEAN PLATELET VOLUME 8.7 FL (7.4-10.4); MONOCYTES # (AUTO) 1.1 X10'3 (0-0.9); MONOCYTES % (AUTO) 10.5 % (2-12); NEUTROPHILS # (AUTO) 7.5 X10'3 (1.8-7.7); PLATELET COUNT 311 X10'3 (140-440); RED BLOOD COUNT 5.27 X10'6 (4.20-5.60); RED CELL DISTRIBUTION WIDTH 13.9 % (11.5-14.5); WHITE BLOOD COUNT 10.3 X10'3 (4.5-11.0)
[2021-09-25 07:00] VITALS: BP 117/87
--- NOTE | 2021-09-25 07:17 | NUR ---
Patient in room PCU 3024. I have received report from Kelly and had the opportunity to ask questions and assume patient care.
[2021-09-25] MEDS: amiodarone 200mg tablet PO SCH ×2 (07:34→20:45)
[2021-09-25] MEDS: docusate sod 100mg capsule PO SCH ×2 (07:34→20:44)
[2021-09-25] MEDS: metoprolol tartrate 50mg tablet PO SCH ×3 (07:38→21:00)
[2021-09-25] MEDS: furosemide 20 MG/2 ML vial IV SCH ×3 (07:44→20:00)
[2021-09-25] MEDS: K and/or MAG REPLACEMENT MC SCH ×2 (07:44→20:00)
[2021-09-25] MEDS: pantoprazole 40mg Tablet.DR PO SCH (08:15)
[2021-09-25 11:00] VITALS: BP 120/53
[2021-09-25] MEDS: aspirin 81mg, enteric-coated 1 TAB TABLET.DR PO SCH (12:35)
[2021-09-25] MEDS ORDERED: lactose-reduced food (Ensure Enlive) - 237ml bottle PO SCH (13:00)
--- NOTE | 2021-09-25 14:49 | NUR ---
F/u 09/25: Pt PO remains poor ~25% avg heart healthy meals past 6 days not meeting needs. Noted continued nausea w/ only small BM's since admit 9 days documented in EMR. Pt seen by ANGELY reports continued nausea impacting PO trends and is taking routine colace per rx though no overt feelings of constipation. Pt has PRN zofran last given 09/23 per EMR; may benefit from routine anti-nausea regimen if MD agreeable. RD encouraged pt to d/w RN/MD for additional bowel regimen if constipation persists. Pt reports liking cranberry juice, sherbet, creamy soups, melon/pineapple, dislikes cream of wheat; requests grapes WS to assist BM. Pt food preferences obtained; see below. Pt is agreeable to vanilla Ensure Enlive TIDWM for protein/kcal needs reports friend brought 'Ensures' from outside currently in bag on bedside table previously had Boost from outside and she will try to drink ONS as well. RD paged MD recommending liberalizing to regular diet given poor PO trends if agreeable; RD notified MD of Ensure Enlive TIDWM ONS recs. Given poor PO trends and mild weakness pt meets minimum non-severe malnutrition criteria; MD notified. Will continue to monitor for further nutrition intervention needs. Recs: 1. Liberalize to Regular diet; encourage PO 2. vanilla Ensure Enlive TIDWM; pending MD verification in EMR 3. honor pt food preferences: cranberry juice TIDWM, resendiz zambian ice BIDLD, whole orange/oatmeal WB 4. routine bowel care; consider additional bowel regimen per MD; no significant BM since admit 9 days 5. consider routine anti-nausea regimen given persistent nausea per MD discretion 6. scaled wt this admit; subsequent weekly wts Addendum: 09/25/21 at [address] Amended: Links added.
[2021-09-25 15:00] VITALS: BP 102/57
[2021-09-25 18:00] VITALS: BP 103/66
--- NOTE | 2021-09-25 18:29 | NUR ---
Problems reprioritized. Patient report given, questions answered & plan of care reviewed with Shirley.
--- NOTE | 2021-09-25 19:00 | NUR ---
Patient in room PCU 3024. I have received report from Ramses GARCIA and had the opportunity to ask questions and assume patient care.
[2021-09-25 22:00] VITALS: BP 108/80
[2021-09-26 02:00] VITALS: BP 99/63
--- NOTE | 2021-09-26 06:42 | NUR ---
Problems reprioritized. Patient report given, questions answered & plan of care reviewed with Ramses GARCIA.
[2021-09-26 07:00] VITALS: BP 107/71
--- NOTE | 2021-09-26 07:19 | NUR ---
Patient in room PCU 3016. I have received report from Livia and had the opportunity to ask questions and assume patient care
--- NOTE | 2021-09-26 07:32 | NUR ---
age Sent promotional table spacer PAGER ID: [phone] MESSAGE: [id number] Abby. Critical INR 4.1 and PT 38.9. Ramses JUAN
[2021-09-26] MEDS: metoprolol tartrate 50mg tablet PO SCH ×3 (08:00→21:01)
[2021-09-26] MEDS: K and/or MAG REPLACEMENT MC SCH ×2 (08:00→20:00)
[2021-09-26] MEDS: furosemide 20 MG/2 ML vial IV SCH (08:08)
[2021-09-26] MEDS: pantoprazole 40mg Tablet.DR PO SCH (08:08)
[2021-09-26] MEDS: docusate sod 100mg capsule PO SCH ×2 (08:08→21:01)
[2021-09-26] MEDS: amiodarone 200mg tablet PO SCH ×2 (08:13→21:00)
[2021-09-26 11:00] VITALS: BP 113/72
[2021-09-26] MEDS: aspirin 81mg, enteric-coated 1 TAB TABLET.DR PO SCH (11:47)
[2021-09-26] MEDS ORDERED: traMADol 50MG tablet PO PRN (12:40)
[2021-09-26 15:00] VITALS: BP 94/59
[2021-09-26 18:00] VITALS: BP 105/63
--- NOTE | 2021-09-26 18:24 | NUR ---
Problems reprioritized. Patient report given, questions answered & plan of care reviewed with
[2021-09-26 22:00] VITALS: BP 149/74
[2021-09-27 02:00] VITALS: BP 120/66
[2021-09-27 06:00] VITALS: BP 107/72
[2021-09-27 06:43] LABS: BASOPHILS # (AUTO) 0.1 X10'3 (0-0.2); BASOPHILS % (AUTO) 0.6 % (0-1); EOSINOPHILS # (AUTO) 0.2 X10'3 (0-0.9); EOSINOPHILS % (AUTO) 2.7 % (0-6); HEMATOCRIT 45.1 % (35.0-45.0); HEMOGLOBIN 15.1 g/dl (12.0-16.0); LYMPHOCYTES # (AUTO) 1.2 X10'3 (1.1-4.8); LYMPHOCYTES % (AUTO) 13.6 % (21-51); MEAN CORPUSCULAR HEMOGLOBIN 28.2 PG (27.0-31.0); MEAN CORPUSCULAR HGB CONC 33.5 g/dL (33.0-36.5); MEAN CORPUSCULAR VOLUME 84.1 FL (78-98); MEAN PLATELET VOLUME 8.4 FL (7.4-10.4); MONOCYTES # (AUTO) 0.9 X10'3 (0-0.9); MONOCYTES % (AUTO) 10.2 % (2-12); NEUTROPHILS # (AUTO) 6.5 X10'3 (1.8-7.7); NEUTROPHILS % (AUTO) 72.9 % (42-75); PLATELET COUNT 339 X10'3 (140-440); RED BLOOD COUNT 5.37 X10'6 (4.20-5.60); WHITE BLOOD COUNT 8.9 X10'3 (4.5-11.0)
[2021-09-27 06:58] LABS: ALANINE AMINOTRANSFERASE 38 U/L (12-78); ALBUMIN 3.1 G/DL (3.4-5.0); ALBUMIN/GLOBULIN RATIO 0.9 (1.1-1.5); ALKALINE PHOSPHATASE 69 IU/L (46-116); ANION GAP 5 (8-16); ASPARTATE AMINO TRANSFERASE 28 U/L (10-37); BILIRUBIN,TOTAL 0.8 MG/DL (0.1-1.0); BLOOD UREA NITROGEN 30 MG/DL (7-18); BUN/CREATININE RATIO 25.9 (6.6-38.0); CALCIUM 9.1 MG/DL (8.5-10.1); CHLORIDE 103 MMOL/L (99-107); CREATININE 1.16 MG/DL (0.40-0.90); GLUCOSE 164 MG/DL (70-104); POTASSIUM 3.6 MMOL/L (3.5-5.1); SODIUM 144 MMOL/L (135-145); TOTAL CARBON DIOXIDE 35.7 MMOL/L (24-32); TOTAL PROTEIN 6.6 G/DL (6.4-8.2); eGFR 45 ML/MIN
[2021-09-27] MEDS: pantoprazole 40mg Tablet.DR PO SCH (07:24)
[2021-09-27 07:25] VITALS: BP_SYST 107
[2021-09-27] MEDS: docusate sod 100mg capsule PO SCH (07:25)
[2021-09-27] MEDS: amiodarone 200mg tablet PO SCH (07:25)
[2021-09-27] MEDS: metoprolol tartrate 50mg tablet PO SCH (07:25)
[2021-09-27] MEDS: furosemide 20 MG/2 ML vial IV SCH (07:26)
[2021-09-27] MEDS: K and/or MAG REPLACEMENT MC SCH (08:00)
[2021-09-27] MEDS ORDERED: FURO-150 PO (11:01)
[2021-09-27] MEDS ORDERED: WARF3TAB56 PO (11:01)
[2021-09-27] MEDS ORDERED: ONDA-103 PO (11:01)
[2021-09-27] MEDS ORDERED: METO50TA16 PO (11:01)
[2021-09-27] MEDS ORDERED: AMIO200T67 PO ×2 (11:04)
--- NOTE | 2021-09-27 11:21 | NUR ---
Spoke to CM regarding patient walker and resources for affordable medication. CM says walker will be delivered to home and patient has to speak to PCP for list of affordable medications. Patient and family at bedside were made aware.
--- NOTE | 2021-09-27 12:12 | NUR ---
IV removed, catheter tip intact. Discharge paperwork reviewed with patient and family at bedside. Patient free from injuries.
[2021-09-29] MEDS ORDERED: amiodarone 200mg tablet PO SCH (08:00)
[2021-10-04] MEDS ORDERED: amiodarone 200mg tablet PO SCH (08:00)
[2021-10-13] MEDS ORDERED: amiodarone 200mg tablet PO SCH (08:00)
== END 2021-09-27 12:17 | disposition home health service (06) | DRG 280 ==
LOC: ER 17:03 → ED HOLD 19:45 → PCU 3S 09-17 14:08
PROVIDERS: ADMIT Internal Medicine; ATTEND Internal Medicine
PROC: B32T1ZZ Computerized Tomography (CT Scan) of Left Pulmonary Artery using Low Osmolar Contrast (ICD-10-PCS; 2021-09-18)
PROC: B3201ZZ Computerized Tomography (CT Scan) of Thoracic Aorta using Low Osmolar Contrast (ICD-10-PCS; 2021-09-18)
PROC: B32S1ZZ Computerized Tomography (CT Scan) of Right Pulmonary Artery using Low Osmolar Contrast (ICD-10-PCS; 2021-09-18)
PROC: B24CZZ4 Ultrasonography of Pericardium, Transesophageal (ICD-10-PCS; principal; 2021-09-21)
DX: I50.33 Acute on chronic diastolic (congestive) heart failure (principal); I21.A1 Myocardial infarction type 2; N17.0 Acute kidney failure with tubular necrosis; D68.9 Coagulation defect, unspecified; I48.0 Paroxysmal atrial fibrillation; I25.10 Atherosclerotic heart disease of native coronary artery without angina pectoris; I51.3 Intracardiac thrombosis, not elsewhere classified; R32 Unspecified urinary incontinence; E87.6 Hypokalemia; M25.50 Pain in unspecified joint; K21.9 Gastro-esophageal reflux disease without esophagitis; I95.9 Hypotension, unspecified; R00.0 Tachycardia, unspecified; R19.7 Diarrhea, unspecified; Z53.20 Procedure and treatment not carried out because of patient's decision for unspecified reasons; Z79.899 Other long term (current) drug therapy; Z88.0 Allergy status to penicillin; Z88.5 Allergy status to narcotic agent; Z88.1 Allergy status to other antibiotic agents; Z98.42 Cataract extraction status, left eye; Z98.41 Cataract extraction status, right eye
CPT/HCPCS: 36415; 71045; 71275; 80048; 80053; 80076; 81001; 81003; 82948; 83735; 83880; 84132; 84439; 84443; 84484; 85025; 85379; 85610; 85730; 86140; 87081; 93005; 93306; 93312; 94799; 96365; 97110; 97116; 97161; 97530; 99285; G0378; J0282; J1160; J1650; J1940; J2250; J3475; J3480; J3490; J7030; J7040; Q9967

== ENCOUNTER 2021-12-01 06:58 | Day surgery (SDC) | payer MEDICARE ==
[2021-11-30 14:54] LABS: BASOPHILS % (AUTO) 0.4 % (0-1); EOSINOPHILS # (AUTO) 0.2 X10'3 (0-0.9); EOSINOPHILS % (AUTO) 2.5 % (0-6); HEMATOCRIT 40.8 % (35.0-45.0); HEMOGLOBIN 13.7 g/dl (12.0-16.0); MEAN CORPUSCULAR HEMOGLOBIN 28.5 PG (27.0-31.0); MEAN CORPUSCULAR HGB CONC 33.5 g/dL (33.0-36.5); MEAN CORPUSCULAR VOLUME 85.1 FL (78-98); MEAN PLATELET VOLUME 8.1 FL (7.4-10.4); MONOCYTES # (AUTO) 0.9 X10'3 (0-0.9); MONOCYTES % (AUTO) 10.6 % (2-12); NEUTROPHILS # (AUTO) 6.7 X10'3 (1.8-7.7); NEUTROPHILS % (AUTO) 75.5 % (42-75); PLATELET COUNT 229 X10'3 (140-440); RED BLOOD COUNT 4.79 X10'6 (4.20-5.60); WHITE BLOOD COUNT 8.8 X10'3 (4.5-11.0)
[2021-11-30 14:55] LABS: ALBUMIN 3.2 G/DL (3.4-5.0); ANION GAP 7 (8-16); BLOOD UREA NITROGEN 21 MG/DL (7-18); BUN/CREATININE RATIO 22.3 (6.6-38.0); CALCIUM 8.9 MG/DL (8.5-10.1); CHLORIDE 102 MMOL/L (99-107); CREATININE 0.94 MG/DL (0.40-0.90); GLUCOSE 116 MG/DL (70-104); POTASSIUM 3.9 MMOL/L (3.5-5.1); SODIUM 138 MMOL/L (135-145); TOTAL CARBON DIOXIDE 29.3 MMOL/L (24-32); eGFR 57 ML/MIN
[~2021-12-01] VITALS: Ht 167.6 cm; Wt 68.0 kg
[~2021-12-01 06:58] MED LIST: AMIO200T67 PO; ASPI-611 PO; METO50TA16 PO; OMEP20TA43 PO; ONDA-103 PO; WARF3TAB56 PO
[2021-12-01 07:15] VITALS: BP 103/55
[2021-12-01] MEDS ORDERED: diphenhydrAMINE 25mg capsule PO ONE (07:35)
[2021-12-01] MEDS ORDERED: amiodarone 150mg/dext, iso-os 100 ML IV ONE (07:35)
[2021-12-01] MEDS ORDERED: MIDAZolam 1mg/ml 10ml vial IV ONE (07:35)
[2021-12-01] MEDS ORDERED: atropine 0.1mg/ml 10ml syringe IV ONE (07:35)
[2021-12-01] MEDS ORDERED: morphine 10mg/ml inj. IV ONE (07:35)
[2021-12-01] MEDS ORDERED: LORazepam 0.5 MG tablet PO ONE (07:35)
[2021-12-01] MEDS ORDERED: WARF3TAB56 PO (07:37)
[2021-12-01] MEDS ORDERED: METO50TA16 PO (07:37)
[2021-12-01] MEDS ORDERED: AMIO200T61 PO (07:37)
[2021-12-01] MEDS ORDERED: POTA-82 PO (07:37)
[2021-12-01] MEDS ORDERED: Mag Ox (07:37)
[2021-12-01] MEDS ORDERED: Vitamin B12 PO (07:40)
[2021-12-01 09:37] LABS: APTT 36 SECONDS (22-32)
== END 2021-12-01 09:20 | disposition home or self-care (01) ==
LOC: SSTAY O 06:58
PROVIDERS: ATTEND Internal Medicine Cardiovascular Disease
DX: I48.19 Other persistent atrial fibrillation (principal); Z53.8 Procedure and treatment not carried out for other reasons; I27.20 Pulmonary hypertension, unspecified; I08.3 Combined rheumatic disorders of mitral, aortic and tricuspid valves; I11.0 Hypertensive heart disease with heart failure; I50.30 Unspecified diastolic (congestive) heart failure; E78.5 Hyperlipidemia, unspecified; E11.9 Type 2 diabetes mellitus without complications; Z79.899 Other long term (current) drug therapy; Z79.82 Long term (current) use of aspirin; Z98.890 Other specified postprocedural states; Z98.41 Cataract extraction status, right eye; Z98.42 Cataract extraction status, left eye; Z88.0 Allergy status to penicillin; Z88.5 Allergy status to narcotic agent; Z88.1 Allergy status to other antibiotic agents; Z88.8 Allergy status to other drugs, medicaments and biological substances; Z82.3 Family history of stroke; Z82.49 Family history of ischemic heart disease and other diseases of the circulatory system
CPT/HCPCS: 36415; 80048; 85025; 85610; 85730; 93005; J7030; A4620

== ENCOUNTER 2023-05-18 11:55 | Emergency (ER) | payer MEDICARE ==
[~2023-05-18] VITALS: Ht 165.1 cm; Wt 69.1 kg
[~2023-05-18 11:55] MED LIST changes: +AMI200T PO; -AMIO200T67 PO; -ASPI-611 PO; +Mag Ox; -ONDA-103 PO; +POTA-366 PO; +Vitamin B12 PO
[2023-05-18 12:01] VITALS: BP 106/55; PULSE 53; RESP 16; TEMP 98; O2SAT 95
[2023-05-18] MEDS ORDERED: LIDO1ADH78 TOP (13:35)
== END 2023-05-18 13:45 | disposition home or self-care (01) ==
LOC: ER 11:55
DX: S32.029A Unspecified fracture of second lumbar vertebra, initial encounter for closed fracture (principal); K21.9 Gastro-esophageal reflux disease without esophagitis; Z88.6 Allergy status to analgesic agent; Z88.5 Allergy status to narcotic agent; Z91.041 Radiographic dye allergy status; Z79.899 Other long term (current) drug therapy; X58.XXXA Exposure to other specified factors, initial encounter; Y93.89 Activity, other specified; Y92.89 Other specified places as the place of occurrence of the external cause; Y99.8 Other external cause status
CPT/HCPCS: 72100; 99284

== ENCOUNTER 2023-08-01 09:14 | Inpatient (IN) | payer MEDICARE ==
[~2023-08-01] VITALS: Ht 160 cm; Wt 69.9 kg
[~2023-08-01 09:14] MED LIST changes: +LIDO1ADH78 TOP
[2023-08-01 10:41] LABS: BASOPHILS % (AUTO) 0.3 % (0-1); EOSINOPHILS % (AUTO) 0 % (0-6); HEMATOCRIT 42.2 % (35.0-45.0); HEMOGLOBIN 14.1 g/dl (12.0-16.0); LYMPHOCYTES # (AUTO) 0.4 X10'3 (1.1-4.8); LYMPHOCYTES % (AUTO) 3.2 % (21-51); MEAN CORPUSCULAR HEMOGLOBIN 29.7 PG (27.0-31.0); MEAN CORPUSCULAR HGB CONC 33.4 g/dL (33.0-36.5); MEAN CORPUSCULAR VOLUME 88.9 FL (78-98); MEAN PLATELET VOLUME 8.4 FL (7.4-10.4); MONOCYTES # (AUTO) 1.1 X10'3 (0-0.9); MONOCYTES % (AUTO) 7.8 % (2-12); NEUTROPHILS # (AUTO) 12.5 X10'3 (1.8-7.7); NEUTROPHILS % (AUTO) 88.7 % (42-75); PLATELET COUNT 160 X10'3 (140-440); RED BLOOD COUNT 4.75 X10'6 (4.20-5.60); RED CELL DISTRIBUTION WIDTH 14.7 % (11.5-14.5); WHITE BLOOD COUNT 14.1 X10'3 (4.5-11.0)
[2023-08-01 10:57] LABS: APTT 42 SECONDS (22-32); PROTHROMBIN TIME 20.7 SECONDS (9.0-12.0)
[2023-08-01] MEDS: CefTRIAXone 2gm/D5W 50ml BAG 50 ML IV ONE (11:10)
[2023-08-01 11:19] LABS: ALBUMIN 2.7 G/DL (3.4-5.0); ANION GAP 7 (8-16); BLOOD UREA NITROGEN 26 MG/DL (7-18); BUN/CREATININE RATIO 29.2 (10.0-20.0); CALCIUM 8.9 MG/DL (8.5-10.1); CHLORIDE 105 MMOL/L (99-107); CREATININE 0.89 MG/DL (0.40-0.90); GLUCOSE 192 MG/DL (70-104); POTASSIUM 3.8 MMOL/L (3.5-5.1); SODIUM 140 MMOL/L (135-145); TOTAL CARBON DIOXIDE 27.7 MMOL/L (24-32); eCRCL 41 ML/MIN; eGFR 61 ML/MIN
[2023-08-01 11:38] LABS: MAGNESIUM 1.9 MG/DL (1.5-2.4)
[2023-08-01] MEDS ORDERED: magnesium 4gm in 100ml NS 100 ML IV PRN (11:50)
[2023-08-01] MEDS ORDERED: magnesium 2GM in 50ml NS 50 ML IV PRN (11:50)
[2023-08-01] MEDS ORDERED: ondansetron/PF 4mg/2ml inj IV PRN (11:50)
[2023-08-01] MEDS ORDERED: potassium Cl 40MEQ/1/2NS 520ml 520 ML IV PRN (11:50)
[2023-08-01] MEDS ORDERED: magnesium Cl slow-release 64mg tablet PO PRN (11:50)
[2023-08-01] MEDS ORDERED: potassium Cl 20 mEq SR tablet PO PRN ×2 (11:50)
[2023-08-01] MEDS: normal saline 1000ml 1,000 ML IV SCH (12:12)
[2023-08-01] MEDS ORDERED: OXYC-658 PO (12:21)
[2023-08-01] MEDS: vancomycin/NS 1 GM ADD-VANTAGE 250 ML IV ONE (12:30)
[2023-08-01 13:21] LABS: BILIRUBIN,URINE NEGATIVE (Neg); CLARITY,URINE SLIGHTLY CLOUDY (Clear); COLOR,URINE YELLOW (Yellow); GLUCOSE, URINE NEGATIVE (Neg); KETONES,URINE NEGATIVE (Neg); LEUKOCYTE ESTERASE ,URINE TRACE (Neg); NITRITES, URINE POSITIVE (Neg); OCCULT BLOOD,URINE MODERATE (Neg); PH,URINE 5.5 (4.8-8.0); PROTEIN,URINE TRACE mg/dl (Neg); UROBILINOGEN,URINE 0.2 E.U/dL (0.2-1.0)
[2023-08-01 13:22] LABS: UA COLLECTION TYPE STRAIGHT CATH
[2023-08-01] MEDS ORDERED: iohexol 300mg/ml 100ml inj. ONE (13:23)
[2023-08-01 13:27] LABS: BACTERIA,URINE 4+ /HPF (Neg); MUCUS STRANDS NONE SEEN /LPF (Neg); RBC,URINE 0-2 /HPF (0-2); SQUAMOUS EPITHELIAL CELL,UR FEW /LPF (FEW); WBC,URINE 50-100 /HPF (0-4)
[2023-08-01 13:28] LABS: WBC CLUMPS,URINE FEW /HPF (NEGATIVE)
[2023-08-01] MEDS ORDERED: oxyCODONE IR 5mg (immed. release) tablet PO SCH (20:00)
[2023-08-01 22:41] VITALS: RESP 18
[2023-08-01 23:00] VITALS: BP 128/56; PULSE 86; RESP 18; TEMP 100.1; O2SAT 93
[2023-08-01] MEDS: oxyCODONE IR 5mg (immed. release) tablet PO PRN (23:09)
[2023-08-02 06:56] LABS: BASOPHILS % (AUTO) 0.2 % (0-1); EOSINOPHILS % (AUTO) 0.1 % (0-6); HEMOGLOBIN 13.4 g/dl (12.0-16.0); LYMPHOCYTES # (AUTO) 0.6 X10'3 (1.1-4.8); MEAN CORPUSCULAR HEMOGLOBIN 29.6 PG (27.0-31.0); MEAN CORPUSCULAR HGB CONC 33.5 g/dL (33.0-36.5); MEAN CORPUSCULAR VOLUME 88.6 FL (78-98); MONOCYTES # (AUTO) 1.3 X10'3 (0-0.9); MONOCYTES % (AUTO) 9.5 % (2-12); NEUTROPHILS # (AUTO) 12.2 X10'3 (1.8-7.7); NEUTROPHILS % (AUTO) 86.2 % (42-75); PLATELET COUNT 161 X10'3 (140-440); RED BLOOD COUNT 4.51 X10'6 (4.20-5.60); RED CELL DISTRIBUTION WIDTH 14.8 % (11.5-14.5); WHITE BLOOD COUNT 14.1 X10'3 (4.5-11.0)
[2023-08-02 07:20] LABS: ALANINE AMINOTRANSFERASE 26 U/L (12-78); ALBUMIN 2.3 G/DL (3.4-5.0); ALBUMIN/GLOBULIN RATIO 0.6 (1.1-1.5); ALKALINE PHOSPHATASE 70 IU/L (46-116); ANION GAP 8 (8-16); ASPARTATE AMINO TRANSFERASE 22 U/L (10-37); BLOOD UREA NITROGEN 22 MG/DL (7-18); BUN/CREATININE RATIO 28.6 (10.0-20.0); CALCIUM 8.7 MG/DL (8.5-10.1); CHLORIDE 108 MMOL/L (99-107); CREATININE 0.77 MG/DL (0.40-0.90); GLUCOSE 140 MG/DL (70-104); POTASSIUM 3.6 MMOL/L (3.5-5.1); SODIUM 143 MMOL/L (135-145); TOTAL CARBON DIOXIDE 27.5 MMOL/L (24-32); TOTAL PROTEIN 5.9 G/DL (6.4-8.2); eCRCL 47 ML/MIN; eGFR 72 ML/MIN
[2023-08-02 08:00] VITALS: RESP 18; O2SAT 93
[2023-08-02] MEDS: enoxaparin 40mg/0.4ml syringe SUBCUT SCH (08:50)
[2023-08-02] MEDS: CefTRIAXone 2gm/D5W 50ml BAG 50 ML IV SCH (08:53)
[2023-08-02 10:00] VITALS: BP 127/66; PULSE 84; RESP 18; TEMP 98.1; O2SAT 93
[2023-08-02] MEDS: FLU VACC QS2023-24(6MOS UP)/PF 60 MCG/0.5 ML SYRINGE IM ONE (10:00)
[2023-08-02] MEDS: metoprolol tartrate 12.5mg (1/2 tablet) PO SCH (14:31)
[2023-08-02 18:00] VITALS: BP 120/61; PULSE 79; RESP 16; TEMP 97.2; O2SAT 94
[2023-08-02 20:00] VITALS: RESP 17; O2SAT 96
[2023-08-02] MEDS: NUT.TX.IMPAIRED DIGEST FXN (Ensure Clear) 237 ML PO SCH (20:00)
[2023-08-02 22:00] VITALS: BP 128/60; PULSE 81; RESP 19; TEMP 97.9; O2SAT 96
[2023-08-03 06:38] LABS: BASOPHILS % (AUTO) 0.1 % (0-1); EOSINOPHILS # (AUTO) 0.1 X10'3 (0-0.9); EOSINOPHILS % (AUTO) 0.6 % (0-6); HEMATOCRIT 39.3 % (35.0-45.0); HEMOGLOBIN 13.1 g/dl (12.0-16.0); LYMPHOCYTES # (AUTO) 0.5 X10'3 (1.1-4.8); MEAN CORPUSCULAR HEMOGLOBIN 29.5 PG (27.0-31.0); MEAN CORPUSCULAR HGB CONC 33.2 g/dL (33.0-36.5); MEAN CORPUSCULAR VOLUME 88.7 FL (78-98); MEAN PLATELET VOLUME 8.8 FL (7.4-10.4); MONOCYTES % (AUTO) 8.7 % (2-12); NEUTROPHILS % (AUTO) 86.6 % (42-75); PLATELET COUNT 159 X10'3 (140-440); RED BLOOD COUNT 4.43 X10'6 (4.20-5.60); RED CELL DISTRIBUTION WIDTH 14.7 % (11.5-14.5); WHITE BLOOD COUNT 11.6 X10'3 (4.5-11.0)
[2023-08-03 06:47] LABS: ALANINE AMINOTRANSFERASE 27 U/L (12-78); ALBUMIN 2.1 G/DL (3.4-5.0); ALBUMIN/GLOBULIN RATIO 0.6 (1.1-1.5); ALKALINE PHOSPHATASE 66 IU/L (46-116); ANION GAP 9 (8-16); ASPARTATE AMINO TRANSFERASE 24 U/L (10-37); BILIRUBIN,TOTAL 1.1 MG/DL (0.1-1.0); BLOOD UREA NITROGEN 21 MG/DL (7-18); BUN/CREATININE RATIO 31.8 (10.0-20.0); CALCIUM 8.5 MG/DL (8.5-10.1); CHLORIDE 109 MMOL/L (99-107); CREATININE 0.66 MG/DL (0.40-0.90); GLUCOSE 138 MG/DL (70-104); POTASSIUM 3.6 MMOL/L (3.5-5.1); SODIUM 145 MMOL/L (135-145); TOTAL CARBON DIOXIDE 27.2 MMOL/L (24-32); TOTAL PROTEIN 5.8 G/DL (6.4-8.2); eCRCL 55 ML/MIN; eGFR 86 ML/MIN
[2023-08-03 07:16] VITALS: BP 130/66; PULSE 53; RESP 16; TEMP 97.2; O2SAT 94
[2023-08-03 08:00] VITALS: RESP 18; O2SAT 97
[2023-08-03] MEDS: amiodarone 200mg tablet PO SCH (08:36)
[2023-08-03] MEDS: pantoprazole 40mg Tablet.DR PO SCH (08:36)
[2023-08-03 10:00] VITALS: BP 123/65; PULSE 85; RESP 16; TEMP 97.9; O2SAT 95
[2023-08-03 18:00] VITALS: BP 122/61; PULSE 86; RESP 14; TEMP 97.9; O2SAT 96
[2023-08-03 20:10] VITALS: RESP 14; O2SAT 96
[2023-08-03 22:00] VITALS: BP 116/60; PULSE 83; RESP 14; TEMP 97.4; O2SAT 96
[2023-08-04 06:21] LABS: BASOPHILS % (AUTO) 0.2 % (0-1); EOSINOPHILS # (AUTO) 0.1 X10'3 (0-0.9); EOSINOPHILS % (AUTO) 0.7 % (0-6); HEMATOCRIT 38.5 % (35.0-45.0); HEMOGLOBIN 12.9 g/dl (12.0-16.0); LYMPHOCYTES # (AUTO) 0.4 X10'3 (1.1-4.8); MEAN CORPUSCULAR HEMOGLOBIN 29.6 PG (27.0-31.0); MEAN CORPUSCULAR HGB CONC 33.5 g/dL (33.0-36.5); MEAN CORPUSCULAR VOLUME 88.5 FL (78-98); MEAN PLATELET VOLUME 8.6 FL (7.4-10.4); MONOCYTES % (AUTO) 9.5 % (2-12); NEUTROPHILS # (AUTO) 9.3 X10'3 (1.8-7.7); NEUTROPHILS % (AUTO) 85.6 % (42-75); PLATELET COUNT 186 X10'3 (140-440); RED BLOOD COUNT 4.35 X10'6 (4.20-5.60); RED CELL DISTRIBUTION WIDTH 14.6 % (11.5-14.5); WHITE BLOOD COUNT 10.9 X10'3 (4.5-11.0)
[2023-08-04 06:23] LABS: ALANINE AMINOTRANSFERASE 34 U/L (12-78); ALBUMIN 2.1 G/DL (3.4-5.0); ALBUMIN/GLOBULIN RATIO 0.5 (1.1-1.5); ALKALINE PHOSPHATASE 77 IU/L (46-116); ANION GAP 7 (8-16); ASPARTATE AMINO TRANSFERASE 24 U/L (10-37); BILIRUBIN,TOTAL 1.3 MG/DL (0.1-1.0); BLOOD UREA NITROGEN 20 MG/DL (7-18); BUN/CREATININE RATIO 26.7 (10.0-20.0); CALCIUM 8.3 MG/DL (8.5-10.1); CHLORIDE 108 MMOL/L (99-107); CREATININE 0.75 MG/DL (0.40-0.90); GLUCOSE 170 MG/DL (70-104); POTASSIUM 3.4 MMOL/L (3.5-5.1); SODIUM 145 MMOL/L (135-145); TOTAL CARBON DIOXIDE 30.5 MMOL/L (24-32); eCRCL 49 ML/MIN; eGFR 74 ML/MIN
[2023-08-04 06:36] VITALS: BP_SYST 121; BP_DIAS 69; BP_DIAS 76; PULSE 15; PULSE 90; RESP 14; RESP 16; TEMP 97.5; O2SAT 96
[2023-08-04 08:00] VITALS: RESP 16; O2SAT 96
[2023-08-04 10:00] VITALS: BP 118/67; PULSE 76; RESP 17; TEMP 97; O2SAT 95
[2023-08-04] MEDS ORDERED: ondansetron 4mg rapidly disintigrating tab PO PRN (14:40)
[2023-08-04] MEDS ORDERED: magnesium Cl slow-release 64mg tablet PO PRN (15:50)
[2023-08-04] MEDS ORDERED: magnesium 4gm in 100ml NS 100 ML IV PRN (15:50)
[2023-08-04] MEDS ORDERED: potassium Cl 40MEQ/1/2NS 520ml 520 ML IV PRN (15:50)
[2023-08-04] MEDS ORDERED: potassium Cl 20 mEq SR tablet PO PRN (15:50)
[2023-08-04] MEDS ORDERED: magnesium 2GM in 50ml NS 50 ML IV PRN (15:50)
[2023-08-04] MEDS: potassium Cl 20 mEq SR tablet PO STA (16:34)
[2023-08-04 18:00] VITALS: BP 130/66; PULSE 87; RESP 18; TEMP 97.7; O2SAT 95
[2023-08-04 20:00] VITALS: RESP 18; O2SAT 95
[2023-08-04 22:00] VITALS: BP 132/68; PULSE 79; RESP 24; TEMP 98; O2SAT 95
[2023-08-05 06:00] VITALS: BP 123/55; PULSE 82; RESP 15; TEMP 98.9; O2SAT 97
[2023-08-05 06:42] LABS: BASOPHILS % (AUTO) 0.4 % (0-1); EOSINOPHILS # (AUTO) 0.2 X10'3 (0-0.9); EOSINOPHILS % (AUTO) 1.6 % (0-6); HEMATOCRIT 37.9 % (35.0-45.0); HEMOGLOBIN 12.8 g/dl (12.0-16.0); LYMPHOCYTES # (AUTO) 0.6 X10'3 (1.1-4.8); LYMPHOCYTES % (AUTO) 5.6 % (21-51); MEAN CORPUSCULAR HEMOGLOBIN 29.8 PG (27.0-31.0); MEAN CORPUSCULAR HGB CONC 33.9 g/dL (33.0-36.5); MEAN PLATELET VOLUME 8.2 FL (7.4-10.4); MONOCYTES # (AUTO) 0.9 X10'3 (0-0.9); MONOCYTES % (AUTO) 8.3 % (2-12); NEUTROPHILS # (AUTO) 8.8 X10'3 (1.8-7.7); NEUTROPHILS % (AUTO) 84.1 % (42-75); PLATELET COUNT 186 X10'3 (140-440); RED BLOOD COUNT 4.31 X10'6 (4.20-5.60); RED CELL DISTRIBUTION WIDTH 14.5 % (11.5-14.5); WHITE BLOOD COUNT 10.5 X10'3 (4.5-11.0)
[2023-08-05 07:06] LABS: ALANINE AMINOTRANSFERASE 42 U/L (12-78); ALBUMIN/GLOBULIN RATIO 0.5 (1.1-1.5); ALKALINE PHOSPHATASE 78 IU/L (46-116); ANION GAP 8 (8-16); ASPARTATE AMINO TRANSFERASE 33 U/L (10-37); BLOOD UREA NITROGEN 16 MG/DL (7-18); BUN/CREATININE RATIO 24.6 (10.0-20.0); CALCIUM 8.6 MG/DL (8.5-10.1); CHLORIDE 107 MMOL/L (99-107); CREATININE 0.65 MG/DL (0.40-0.90); GLUCOSE 161 MG/DL (70-104); POTASSIUM 3.4 MMOL/L (3.5-5.1); SODIUM 143 MMOL/L (135-145); TOTAL CARBON DIOXIDE 28.5 MMOL/L (24-32); eCRCL 56 ML/MIN; eGFR 87 ML/MIN
[2023-08-05] MEDS: potassium Cl 20 mEq SR tablet PO PRN (09:14)
[2023-08-05 10:00] VITALS: BP 107/56; PULSE 78; RESP 17; TEMP 97.9; O2SAT 95
[2023-08-05 18:00] VITALS: BP 111/64; PULSE 76; RESP 14; TEMP 97.8; O2SAT 95
[2023-08-05 22:00] VITALS: BP 129/64; PULSE 82; RESP 16; TEMP 96.8; O2SAT 98
[2023-08-06 06:00] VITALS: BP 127/57; PULSE 77; RESP 16; TEMP 97.9; O2SAT 96
[2023-08-06 06:24] LABS: BASOPHILS % (AUTO) 0.4 % (0-1); EOSINOPHILS # (AUTO) 0.2 X10'3 (0-0.9); EOSINOPHILS % (AUTO) 2.2 % (0-6); HEMATOCRIT 36.7 % (35.0-45.0); HEMOGLOBIN 12.4 g/dl (12.0-16.0); LYMPHOCYTES # (AUTO) 0.5 X10'3 (1.1-4.8); LYMPHOCYTES % (AUTO) 4.7 % (21-51); MEAN CORPUSCULAR HEMOGLOBIN 29.7 PG (27.0-31.0); MEAN CORPUSCULAR HGB CONC 33.7 g/dL (33.0-36.5); MEAN CORPUSCULAR VOLUME 88.1 FL (78-98); MEAN PLATELET VOLUME 8.3 FL (7.4-10.4); MONOCYTES # (AUTO) 0.8 X10'3 (0-0.9); MONOCYTES % (AUTO) 7.8 % (2-12); NEUTROPHILS # (AUTO) 8.9 X10'3 (1.8-7.7); NEUTROPHILS % (AUTO) 84.9 % (42-75); PLATELET COUNT 206 X10'3 (140-440); RED BLOOD COUNT 4.17 X10'6 (4.20-5.60); RED CELL DISTRIBUTION WIDTH 14.2 % (11.5-14.5); WHITE BLOOD COUNT 10.5 X10'3 (4.5-11.0)
[2023-08-06 06:42] LABS: ALANINE AMINOTRANSFERASE 51 U/L (12-78); ALBUMIN/GLOBULIN RATIO 0.6 (1.1-1.5); ALKALINE PHOSPHATASE 71 IU/L (46-116); ANION GAP 4 (8-16); ASPARTATE AMINO TRANSFERASE 40 U/L (10-37); BILIRUBIN,TOTAL 0.7 MG/DL (0.1-1.0); BLOOD UREA NITROGEN 16 MG/DL (7-18); BUN/CREATININE RATIO 25.8 (10.0-20.0); CALCIUM 7.8 MG/DL (8.5-10.1); CHLORIDE 107 MMOL/L (99-107); CREATININE 0.62 MG/DL (0.40-0.90); GLUCOSE 151 MG/DL (70-104); POTASSIUM 3.6 MMOL/L (3.5-5.1); SODIUM 142 MMOL/L (135-145); TOTAL CARBON DIOXIDE 31.5 MMOL/L (24-32); TOTAL PROTEIN 5.6 G/DL (6.4-8.2); eCRCL 59 ML/MIN; eGFR > 90 ML/MIN
[2023-08-06 08:00] VITALS: RESP 16; O2SAT 94
[2023-08-06 18:00] VITALS: BP 121/70; PULSE 82; RESP 17; TEMP 97.2; O2SAT 95
[2023-08-06 20:00] VITALS: RESP 17; O2SAT 95
[2023-08-06 22:00] VITALS: BP 133/72; PULSE 73; RESP 17; TEMP 97.8; O2SAT 94
[2023-08-07 06:00] VITALS: BP 124/62; PULSE 74; RESP 17; TEMP 97.7; O2SAT 97
[2023-08-07 08:44] VITALS: BP 124/58; PULSE 84; RESP 18; TEMP 97.9; O2SAT 96
[2023-08-07 08:45] VITALS: RESP 18; O2SAT 97
[2023-08-07] MEDS: azithromycin/NS 500mg/250ml 250 ML IV ONE (11:29)
[2023-08-07 18:00] VITALS: BP 134/69; PULSE 76; RESP 16; TEMP 98.9; O2SAT 95
[2023-08-07 20:00] VITALS: RESP 15; O2SAT 96
[2023-08-07 20:29] LABS: INR 1.5 INR; PROTHROMBIN TIME 15.8 SECONDS (9.0-12.0)
[2023-08-07] MEDS: metoprolol tartrate 50mg tablet PO SCH (21:16)
[2023-08-07 22:00] VITALS: BP 117/57; PULSE 78; RESP 15; TEMP 97; O2SAT 96
[2023-08-08 06:19] LABS: INR 1.5 INR; PROTHROMBIN TIME 15.6 SECONDS (9.0-12.0)
[2023-08-08 07:00] VITALS: BP 125/64; PULSE 66; RESP 15; TEMP 97.5; O2SAT 96
[2023-08-08 13:25] VITALS: BP_SYST 110; PULSE 68
[2023-08-09] MEDS ORDERED: warfarin 3mg tablet PO SCH ×2 (08:00)
== END 2023-08-08 14:05 | DRG 194 ==
LOC: ER 09:15 → ED HOLD 11:57 → EDBEDREQ 21:39 → ORTHO 4S 22:18
PROVIDERS: ADMIT Internal Medicine; ATTEND Internal Medicine
PROC: BW241ZZ Computerized Tomography (CT Scan) of Chest and Abdomen using Low Osmolar Contrast (ICD-10-PCS; principal; 2023-08-01)
DX: J15.9 Unspecified bacterial pneumonia (principal); M48.56XA Collapsed vertebra, not elsewhere classified, lumbar region, initial encounter for fracture; N39.0 Urinary tract infection, site not specified; R65.10 Systemic inflammatory response syndrome (SIRS) of non-infectious origin without acute organ dysfunction; I48.91 Unspecified atrial fibrillation; K21.9 Gastro-esophageal reflux disease without esophagitis; M54.9 Dorsalgia, unspecified; Z66 Do not resuscitate; R19.00 Intra-abdominal and pelvic swelling, mass and lump, unspecified site; G89.29 Other chronic pain; Z88.0 Allergy status to penicillin; Z88.6 Allergy status to analgesic agent; Z88.5 Allergy status to narcotic agent; Z88.8 Allergy status to other drugs, medicaments and biological substances; Z91.09 Other allergy status, other than to drugs and biological substances; Z79.899 Other long term (current) drug therapy; Z79.01 Long term (current) use of anticoagulants; Z98.42 Cataract extraction status, left eye; Z98.41 Cataract extraction status, right eye
CPT/HCPCS: 36415; 70450; 71045; 71260; 74176; 80048; 80053; 81001; 83605; 83735; 84145; 84484; 85025; 85610; 85730; 86304; 87040; 87077; 87081; 87088; 87186; 90686; 93005; 97110; 97116; 97161; 97530; 99285; A6250; C1758; G0378; J0456; J0696; J1650; J3370; J3490; J7030; J7040; Q9967